=== PATIENT | female | born 1990 | race Caucasian/White ===

== ENCOUNTER 2016-12-19 21:02 | Emergency (ER) | payer OTHER ==
[2016-12-19 21:17] VITALS: BP 116/73
[2016-12-19] MEDS ORDERED: Clindamycin CAP* 150 MG PO ONE (22:35)
--- NOTE | 2016-12-29 22:16 | UC ---
anuel Teran Timothy, scribed for Joanna Gonzalez MD on 12/19/16 at 2207 . Skin Complaint HPI - HPI Summary HPI Summary: Cheryl Sherman is a 26 yo female presenting to [facility] with sores on her chin for the past week causing 7/10 dull, throbbing pain. She has a Hx of similar Sx , but went on antibiotic medication for it and went off that a few months ago. She denies any other PMHx. She denies Hx of MRSA. - History of Current Complaint Chief Complaint: [place] Time Seen by Provider: 12/19/16 22:32 Stated Complaint: SORE ON CHIN Hx Obtained From: Patient Hx Last Menstrual Period: 12/08/16 ?: No Onset/Duration: Sudden Onset, Lasting Days, Still Present Timing: Constant Onset Severity: Moderate Current Severity: Moderate Pain Intensity: 7 Pain Scale Used: 0-10 Numeric Location: Face - chin Character: Painful Aggravating: Nothing Alleviating: Nothing Associated Signs & Symptoms: Positive: Negative - Allergy/Home Medications Allergies/Adverse Reactions: Allergies Allergy/AdvReac Type Severity Reaction Status Date / Time No Known Allergies Allergy Verified 12/19/16 21:10 Review of Systems Constitutional: Negative Skin: Other - sores on chin Eyes: Negative ENT: Negative Respiratory: Negative Cardiovascular: Negative Gastrointestinal: Negative Genitourinary: Negative Motor: Negative Neurovascular: Negative Musculoskeletal: Negative Neurological: Negative Psychological: Negative All Other Systems Reviewed And Are Negative: Yes PMH/Surg Hx/FS Hx/Imm Hx Endocrine History Of: Denies: Diabetes, Thyroid Disease Cardiovascular History Of: Denies: Cardiac Disorders, Hypertension Respiratory History Of: Denies: COPD, Asthma GI/ History Of: Denies: Ulcer - Surgical History Surgical History: Yes Surgery Procedure, Year, and Place: piolidal cyst removed - Family History Known Family History: Positive: Other - skin CA Negative: Cardiac Disease - Social History Alcohol Use: Weekly Substance Use Type: None Smoking Status (MU): Never Smoked Tobacco Physical Exam Triage Information Reviewed: Yes Appearance: Well-Appearing, Well-Nourished, Pain Distress Vital Signs: Initial Vital Signs Temp 98.6 F 12/19/16 21:12 Pulse 78 12/19/16 21:12 Resp 18 12/19/16 21:12 BP 116/73 12/19/16 21:12 Pulse Ox 100 12/19/16 21:12 Vital Signs Reviewed: Yes Eyes: Positive: Conjunctiva Clear. Negative: Discharge ENT: Positive: Hearing grossly normal, Pharynx normal, TMs normal. Negative: Muffled/hoarse voice Dental: Negative: Cervical Lymphadenopathy Neck: Positive: Supple, Nontender Respiratory: Positive: Lungs clear, Normal breath sounds, No respiratory distress Cardiovascular: Positive: RRR, No Murmur, Pulses Normal, Brisk Capillary Refill Musculoskeletal: Positive: Strength Intact, ROM Intact Neurological: Positive: Alert, Muscle Tone Normal Psychological Exam: Normal Psychological: Positive: Age Appropriate Behavior Skin: Positive: Other - multiple macular papular erythematous pustules on chin, not fluctuant Course/Dx - Course Course Of Treatment: Cheryl sherman is a 26 yo female presenting to [facility] with sores on her chin for the past week. After clinical examination, she will be discharged home with cellulitis and rosacea and appropriate instructions. - Differential Diagnoses - Skin Complaint Differential Diagnoses: Cellulitis, MRSA, Other - rosacea - Diagnoses Provider Diagnoses: cellulitis, rosacea Discharge - Discharge Plan Condition: Stable Disposition: HOME Prescriptions: Clindamycin CAP* [Cleocin 150 MG CAP*] 300 mg PO QID #80 cap Clindamycin Phosphate (Topical [Clindamycin Phosphate 1% TOPICAL TIFFANY] 1 % TOPICAL DAILY #1 bottle Patient Education Materials: Rosacea (ED), Cellulitis (ED) Referrals: [facility] [Outside] - 2 Days Perla Perez [Medical Doctor] - 2 Days Additional Instructions: Please follow up with the primary care physician provided or the med admin provided regarding your visit to urgent care today. Return to urgent care or the emergency department with any new or recurring symptoms. Dr. Gonzalez gave your first dose of Clindamycin tonight. You may resume using the topical gel once you complete the oral antibiotics. The documentation as recorded by the anuel rios Timothy accurately reflects the service I personally performed and the decisions made by , Joanna Gonzalez MD.
== END 2016-12-19 22:52 | disposition home or self-care (01) ==
LOC: UCEAST 21:02
DX: L03.211 Cellulitis of face (principal); L71.9 Rosacea, unspecified
CPT/HCPCS: 99212; A9270-GY; G0463